=== PATIENT | male | born 1950 | race Caucasian/White ===

== ENCOUNTER 2018-03-26 13:49 | Inpatient (IN) ==
--- NOTE | 2018-03-26 14:04 | Cardiology History & Physical ---
<Shlomo Ryan - Last Filed: 03/26/18 14:05> Date of Encounter: 03/26/18 Time of Encounter: 13:00 Assessment and Plan (1) Abnormal stress test Current Visit: No Status: Acute Patient evaluated in stress lab. Out-pt stress test ordered by PCP for c/o chest pain. Describes typical symptoms concerning for unstable angina. C/o chest pain during stress test with EKG changes with ST depression in the inferior and anteroseptal leads, ST elevation seen in AVR. Stress test perfusion imaging found to be abnormal. There was a large sized, moderate to severe intensity, reversible perfusion defect involving the mid anterior and anteroseptal, all apical segments, and apex consistent with ischemia. There was visual TID. Cardiac risk factors include HTN, tobacco use, and carotid stenosis. Patient was recommended to proceed with LHC. R/B/A of LHC discussed. Patient agrees to proceed. (2) Unstable angina Current Visit: No Status: Acute The assessment and plan as outlined above was discussed with the patient and/or family members who expressed understanding and agreement. All questions were answered. History of Present Illness Chief complaint: Chest pain, abnormal stress HPI: Mr. Saleh is a 67 year old male with past medical history of carotid stenosis, aortic stent, previous tobacco use, and HTN. He was recommended to be directly admitted from the stress lab for unstable angina and abnormal stress test suggesting disease in the LAD territory. He c/o midsternal chest pain with exertion that is relieved with rest. Pain increasing in frequency and severity over the last two months. He completed stress test today and c/o chest pain and dyspnea at peak exercise that extended into recovery. Denies SOB or palpitations. Denies edema, orthopnea, or PND. Denies previous history of CAD. Past Med Surg Social Fam HX - Past Medical History Medical history: arthritis, GERD, hypertension, renal disease Psychiatric history: anxiety - Past Surgical History Surgical History: carotid endarterectomy, cholecystectomy, hip replacement, other - Social History Smoking Status: Never smoker Alcohol use: none Drug use: none Medications and Allergies Allopurinol [Zyloprim] 300 mg PO DAILY 09/30/16 [History] Amlodipine Besylate 10 mg PO DAILY 09/30/16 [History] Clopidogrel [Plavix] 75 mg PO DAILY 09/30/16 [History] Metoprolol [Lopressor] 75 mg PO BID 09/30/16 [History] Sertraline [Zoloft] 50 mg PO DAILY 09/30/16 [History] Simvastatin [Zocor] 10 mg PO DAILY 09/30/16 [History] 3 Allergy/AdvReac Type Severity Reaction Status Date / Time Penicillins [PCN] Allergy Rash Verified 09/30/16 12:10 All Systems Review: The remainder of the systems were reviewed and are negative Physical Examination General: Conversant, No Apparent Distress HEENT: Atraumatic, Normocephaly, Mucus Membranes Moist Neck: No JVD, Normal carotid pulses Cardiac: Reg Rate and Rhythm, Normal S1 and S2, No Murmur Lungs: Normal Breath Sounds, No Wheeze, Rales, Rhonchi Neuro: Alert and responsive, No focal deficits noted Abdomen: Soft, Non-Tender Skin: No rashes noted on visualized skin Musculoskeletal: No Chest Wall Tenderness Extremities: No Clubbing, No Cyanosis, No Edema, Normal Pulses Results - Imaging and Cardiology Stress Test: report reviewed - EKG Interpretation EKG results cardiology: personally reviewed <Vickey Reyes - Last Filed: 03/26/18 15:20> Date of Encounter: 03/26/18 - Attending Attestation I have personally performed a face to face evaluation on this patient. I have reviewed and agree with the care plan. History and Exam by me shows: 67 YOM with chest pain during stress test found to have LAD ischemia on Nuclear , for [facility]. R/B/A d/w patient and he agrees to proceed History of Present Illness HPI: Mr. Saleh is a 67 year old male All Systems Review: The remainder of the systems were reviewed and are negative Results 03/26/18 14:55 Lab Results 03/26/18 03/26/18 14:55 14:55 WBC 7.7 Hgb 13.5 Hct 37.9 Plt Count 205 INR 1.1
[2018-03-26] MEDS ORDERED: Naloxone 0.4 MG/ML INJ IVP PRN (14:15)
[2018-03-26] MEDS ORDERED: ISOVUE-370 200 ML INFUS..BTL IV ONE (14:35)
[2018-03-26] MEDS ORDERED: *HR* Heparin 10,000 UNIT/10 ML VIAL ONE (14:35)
[2018-03-26] MEDS ORDERED: Heparin 1,000 UNITS/500 mL 500 ML ONE (14:35)
[2018-03-26] MEDS ORDERED: 0.9 % Sodium Chloride 1,000 ML ONE ×2 (14:35→14:49)
[2018-03-26 15:08] LABS: Basophils # 0.1 K/mcL (0.0-0.2); Basophils % 0.7 %; Eosinophils # 0.1 K/mcL (0.0-0.6); Eosinophils % 1.3 %; Hematocrit 37.9 % (37.5-50.1); Hemoglobin 13.5 g/dL (12.9-16.9); Immature Granulocytes % 0.9 % (0-4); Lymphocytes # 2.9 K/mcL (0.6-4.6); Lymphocytes % 37.1 %; Mean Corpuscular HGB Conc 35.6 g/dL (31.6-35.5); Mean Corpuscular Hemoglobin 35.7 pg (28.0-33.3); Mean Corpuscular Volume 100.3 fL (83.0-100.0); Mean Platelet Volume 9.3 fL (9.4-12.4); Monocytes # 0.5 K/mcL (0.0-1.3); Monocytes % 6.6 %; Neutrophils # 4.1 K/mcL (1.6-8.9); Platelet Count 205 K/mcL (140-400); Red Blood Count 3.78 M/mcL (4.19-5.50); Red Cell Distribution Width 13.3 % (11.5-14.5); Segmented Neutrophils % 53.4 %
[2018-03-26 15:13] LABS: INR 1.1; Prothrombin Time 11.5 Seconds (9.4-12.1)
[2018-03-26 15:25] LABS: BUN/Creatinine Ratio 15 (6-26); Blood Urea Nitrogen 15 mg/dL (8-23); Calcium 9.3 mg/dL (8.6-10.3); Carbon Dioxide 26 mEq/L (23-29); Chloride 105 mEq/L (98-107); Glucose 111 mg/dL (70-105); Osmolality,Calculated 294 (280-300); Potassium 3.4 mEq/L (3.5-5.1); Sodium 141 mEq/L (136-145); eGFR For African Americans > 60 (> 60); eGFR For Non-African Americans > 60 (> 60)
[2018-03-26] MEDS ORDERED: *HR* Midazolam HCl 2 MG/2 ML VIAL ONE (15:48)
--- NOTE | 2018-03-26 15:50 | Pre-Sedation Evaluation ---
Pre-sedation evaluation - Pre-sedation checklist Date of procedure: 03/26/18 Procedure: LHC H&P (including ROS) documented in medical record: Yes Previous reaction to sedatives/anesthetics: No Dietary Status: No solid food in preceding 4 hrs and no liquid in preceding 2 hrs Dentition: No loose teeth or bridges Possible difficult airway: No ASA Classification *see protocol: CLASS III-Severe systemic disease Plan of Care: Pt appropriate candidate for procedure/moderate/conscious sedation , Risks/benefits of procedure/sedation discussed w/ patient/family, If not NPO; Risk of intake outweiged by necessity to perform procedure
[2018-03-26] MEDS ORDERED: *HR* Bivalirudin 250 MG VIAL IVC ONE (16:13)
[2018-03-26] MEDS ORDERED: Nitroglycerin 1,000 MCG/10 ML VIAL IV ONE (16:20)
[2018-03-26] MEDS ORDERED: *HR* Ticagrelor 90 MG TABLET ONE (16:21)
--- NOTE | 2018-03-26 16:52 | Invasive Diagnostic Lab Proc ---
Name: Adis Saleh Date of Study: 03/26/2018 Date: 1950 Ht: 70.1in Medical Record#: [id number] Age: 67 Wt: 219.80lb Gender: Male BSA: 2.17 Order #: [id number] BMI: 31.47 Physicians Procedure Physician: Serge Rush DO Referring MD: Pranay Branch DO,ALICE ISABEL FASNC Referring MD: Staff Name Position Time In Chris Mccray RN Director Acute 03:49 PM Phyllis Diego RT (R) Scrub 03:50 PM Ad Hidalgo RN Monitor 03:50 PM Abraham Harris RN Monitor 03:50 PM Indications Indication Abnormal Test - Stress Procedures Performed Procedure L HRT ARTERY/VENTRICLE ANGIO PRQ CARD DEIRDRE STENT W/ANGIO 1 VSL Pre-Procedure Checklist Informed consent is complete signed and on chart. H&P is on chart. ID band is on and ID verified with patient. Patient NPO for procedure The procedure was described for the patient and questions were answered. Blood Pressure: 141/98 ECG is on chart. Rhythm: NSR Plan of Care Patient will tolerate the procedure without complications. Adequate level of comfort will be maintained. Hemodynamics will remain stable Patient will recover from procedure without complications. Respiratory function will be maintained. Cardiac rhythm will remain stable. Patient temperature will be maintained. Patient and/or family have verbalized understanding of the procedure. Patient Education Chief Complaint/Reason for Test: Cardiac Cath Developmental Category: Geriatric (65+ years) Developmentally Appropriate for Age: Yes Learning Barriers: None Education Needs: Procedure Education Method: Verbal Information Taught: Cardiac Cath Educational Evaluation: Able to repeat information Intravenous Access Time IV Size Location DC'd Fluid/Drip Rate Units RN 03:28 PM 18g 1 1/4" Patent On Arrival Lt Hand 0.9NaCl Ad Hidalgo RN Allergies Penicillins Vital Signs Time BP (mmHg) HR (bpm) O2 Sat. RR (bpm) LOC 03:10 PM 141 / 98 98 96 % 16 5 = Fully awake and oriented or at pre-proc level 03:52 PM / % 5 = Fully awake and oriented or at pre-proc level 03:52 PM / % 4 = Oriented but drowsy 04:07 PM / % 4 = Oriented but drowsy 03:50 PM 160 / 98 79 98 % 03:54 PM 148 / 90 82 96 % 03:59 PM 154 / 86 75 96 % 04:04 PM 154 / 89 77 96 % 04:09 PM 149 / 79 85 99 % 04:15 PM 163 / 93 77 96 % 04:19 PM 166 / 93 74 98 % 04:25 PM 158 / 88 78 97 % Procedural Medications Time Medication Dose Units Method Given By 03:50 PM Oxygen 2 L/min nasal cannula Chris Mccray RN 03:50 PM Versed 2 mg Intravenous Chris Mccray RN 04:00 PM Lidocaine 2% 10 ml Subcutaneous Serge Rush DO 04:14 PM Brilinta 180 mg Orally Chris Mccray RN 04:15 PM Angiomax 0.75mg/kg bolus: 15 ml Intravenous Chris Mccray RN 04:15 PM Angiomax 1.75mg/kg/hr: 35 ml Intravenous Chris Mccray RN 04:20 PM Nitroglycerin 100 mcg Intracoronary Serge Rush DO ASA Classification: CLASS III- Severe systemic disease (i.e. prior AMI, diabetes with vascular complications, morbid obesity) Jo Score Preprocedure Postprocedure Activity 2- Moves 4 extremities sustained head lift Activity 2- Moves 4 extremities sustained head lift Circulation 2- SBP +/= 20 points of pre-anesthetic level Circulation 2- SBP +/= 20 points of pre-anesthetic level Consciousness 2- Awake and alert oriented x 3 Consciousness 2- Awake and alert oriented x 3 O2 Saturation 2- Able to maintain O2 satruation of 92% on room air O2 Saturation 2- Able to maintain O2 satruation of 92% on room air Respiratory 2- Able to deep breathe and cough well Respiratory 2- Able to deep breathe and cough well Total Score 10 Total Score 10 Contrast Agent: Isovue Diagnostic Contrast: 80 ml Total Contrast: 80 ml Fluoro Dose: 568 mGy Procedure Log Time Note Enter By 03:02 PM CathStat 03:47 PM Pt arrived to dentures lab technician 2 at 15:47 cedwards 03:48 PM Patient charges- Angio tray pack, Navilyst 3mm J, Pulse Oximetry and ACIST tubing and transducer cedwards 03:48 PM IV Supplies used: J loop Angio Cath. cedwards 03:48 PM Hair removed from procedure site in holding area using clippers. Bilateral groin prepped with Chloraprep by Ad Hidalgo RN, then patient was draped. Skin intact. ced 03:48 PM Physician arrived 15:48 cedwards 03:48 PM Meet and marielos completed ced 03:48 PM Sign in performed according to hospital policy. ced 03:48 PM Procedure start 15:48 cedwards 03:49 PM CathStat 03:49 PM Vitals capture started with the following parameters, Patient=Adult, Interval=5 min, Initial Hkazmynk=998 mmHg, Deflation Rate=5 mmHg, Cuff placed on Right Arm 03:49 PM Chris Mccray RN Position: Director Acute Time in: 15:49 cedwards 03:50 PM Phyllis Diego RT (R) Position: Scrub Time in: 15:50 ced 03:50 PM Ad Hidalgo RN Position: Monitor Time in: 15:50 cedwards 03:50 PM Abraham Harris RN Position: Monitor Time in: 15:50 cedwards 03:50 PM HR=79 bpm, ICDT=886/98 mmhg, SpO2=98.0 %, Comment=NSR 03:50 PM Time: 15:50 Oxygen on at 2 L/min per nasal cannula by Chris Mccray RN cedwards 03:50 PM Time: 15:50 Versed 2 mg Intravenous Given by Chris Mccray RN 03:52 PM Time: 15:52 Patient comfortable and pain free: Yes ced 03:52 PM Time: 15:52LOC: 5 = Fully awake and oriented or at pre-proc level cedwards 03:54 PM Recorded ECG: HR=83 Condition=Condition 1 03:54 PM HR=82 bpm, YSSB=524/90 mmhg, SpO2=96.0 % 03:56 PM Pressure channel 2 zeroed. 03:59 PM HR=75 bpm, NSQC=532/86 mmhg, SpO2=96.0 % 04:00 PM Time out performed according to hospital policy cedwards 04:00 PM Time: 16:00 10 ml Lidocaine 2% to right groin Subcutaneous Given by Serge Rush DO ced 04:00 PM Micro-Introducer Kit utilized for sheath placement cedwards 04:01 PM ASA Class CLASS III- Severe systemic disease (i.e. prior AMI, diabetes with vascular complications, morbid obesity) cedwards 04:02 PM Access obtained by percutaneous puncture. 6Fr 10cm Terumo [place] sheath placed in right Femoral artery. [id number] cedwards 04:04 PM 6Fr FR 4 catheter inserted over the wire DN cedwards 04:04 PM HR=77 bpm, HNYV=911/89 mmhg, SpO2=96.0 %, Comment=NSR 04:05 PM Recorded Pressure: Ao, HR=74, Condition=Condition 1 (Aorta) Ao 130/57/87 04:06 PM RCA angiography performed in multiple views. cedwards 04:07 PM Time: 15:52 Patient comfortable and pain free: Yes cedwards 04:07 PM Time: 15:52LOC: 4 = Oriented but drowsy cedwards 04:08 PM Catheter removed cedwards 04:09 PM Recorded Pressure: LV, HR=83, Condition=Condition 1 (Left Ventricle) LV 121/-2/4 04:09 PM 6Fr Pigtail catheter inserted over the wire [facility] cedwards 04:09 PM Recorded Pressure: LV, Ao, HR=74, Condition=Condition 1 (Left Ventricle) LV 105/-9/0, (Aorta) Ao 122/55/84 04:09 PM Bolus angiogram of left Ventricle complete cedwards 04:09 PM HR=85 bpm, LNQH=180/79 mmhg, SpO2=99.0 % 04:10 PM Catheter selectively placed in left ventricle cedwards 04:10 PM Catheter removed cedwards 04:10 PM 6Fr JL4 Runway guide catheter was used to cannulate the PCI vessel successfully. reused? No cedwards 04:10 PM LCA angiography performed in multiple views. cedwards 04:12 PM Recorded Pressure: Ao, HR=79, Condition=Condition 1 (Aorta) Ao 127/57/85 04:13 PM Inflation device was opened. cedwards 04:14 PM Time: 16:14 Brilinta 180 mg Orally Given by Chris Mccray RN cedwards 04:15 PM HR=77 bpm, QXDD=600/93 mmhg, SpO2=96.0 %, Comment=NSR 04:15 PM Time: 16:15 Angiomax 0.75mg/kg bolus: 15 ml Intravenous Given by Chris Mccray RN cedwards 04:16 PM Time: 16:15 Angiomax 1.75mg/kg/hr: 35 ml Intravenous Given by Chris Mccray RN [place] pump cedwards 04:17 PM .014 ChoICE PT Extra Support 300cm guide wire across target lesion- successful. reused? No cedwards 04:17 PM 3.0mm x 32mm Synergy drug-eluting stent across target lesion- successful Lot #[id number] cedwards 04:18 PM Stent deployed @ 10 mony for 17 seconds cedwards 04:19 PM HR=74 bpm, MYFZ=024/93 mmhg, SpO2=98.0 % 04:20 PM Recorded Pressure: Ao, HR=77, Condition=Condition 1 (Aorta) Ao 143/63/97 04:20 PM Recorded Pressure: Ao, HR=74, Condition=Condition 1 (Aorta) Ao 142/61/95 04:20 PM Stent delivery system removed intact. cedwards 04:21 PM Time: 16:20 Nitroglycerin 100 mcg Intracoronary Given by Serge Rush DO cedwards 04:22 PM Coronary Dominance: right cedwards 04:22 PM Guide wire removed intact. cedwards 04:22 PM Guide catheter removed intact. cedwards 04:22 PM Time: 16:07 Patient comfortable and pain free: Yes cedwards 04:22 PM Time: 16:07LOC: 4 = Oriented but drowsy cedwards 04:23 PM Bolus angiogram of right femoral complete, hand injected cedwards 04:25 PM HR=78 bpm, KXQD=552/88 mmhg, SpO2=97.0 % 04:25 PM Angiomax stopped per Dr. Rush cedwards 04:27 PM Procedure completed at 16:27 cedwards 04:27 PM Did you address INNA flow and Dominance? Yes cedwards 04:27 PM Sign out completed: Radiation Dose 567.60 mGy Fluoro Time: 5.0 Isovue 370 - 200ml contrast 80 ml given by Serge Rush DO. Complications: NoneCardiac Rehab Consult needed: YesConfirmed administered medications: Yes cedwards 04:27 PM Isovue 370 - 200ml,1 Bottle(s) used. cedwards 04:28 PM Sheath to be pulled on floor cedwards 04:29 PM Estimated Blood Loss: minimal cedwards 04:29 PM Post ECG NSR cedwards 04:29 PM Post Blood Pressure 158/88 cedwards 04:29 PM 16:29 Post Pulses Bilateral DP & PT 2+ cedwards 04:30 PM Information taught Cardiac Cath and PCI cedwards 04:30 PM Education needs Procedure, Plan of Care, and Responsibilities of Patient in Care cedwards 04:30 PM Learning barriers :None cedwards 04:30 PM Education Methods Verbal cedwards 04:30 PM Education evaluation Able to repeat information cedwards 04:30 PM Site status No bleeding/hematoma - Rt Groin as reported by Ad Hidalgo RN at 16:30 cedwards 04:30 PM Opsite applied cedwards 04:30 PM Plavix, Effient or Brilinta given Yes cedwards 04:31 PM Family unavailable cedwards 04:31 PM Fluoro Time: 5 cedwards 04:31 PM Isovue 370 - 200ml contrast [address] Rush. cedwards 04:31 PM Radiation Dose 567.60 mGy cedwards 04:32 PM Lesion found in Mid RCA. Pre Stenosis: 50 Pre NINA Flow: cedwards 04:32 PM Lesion found in Proximal LAD. Pre Stenosis: 85 Pre NINA Flow: 3: Complete and Brisk Flow/Perfusion cedwards 04:33 PM Lesion found in Mid LAD. Pre Stenosis: 50 Pre NINA Flow: cedwards 04:44 PM Report given to Keon BARNES Pt taken to Room #3. 16:44 cedwards 04:45 PM Patient out of room: 16:45 cedwards Complications Complication None Hemodynamics Pressures Site Systolic/A Wave Diastolic/V Wave Mean AO 130 57 87 LV 121 -2 4 LV 105 -9 0 AO 122 55 84 AO 127 57 85 AO 143 63 97 AO 142 61 95 Post Procedure Information Blood Pressure: 158/88 mmHg Rhythm: NSR Post procedural instructions were given Site Checks Time Location Status Staff Sheath In? Note 04:30 PM Rt Groin No bleeding/hematoma Ad Hidalgo RN Pulses Time Site Pre-Procedure Post-Procedure Note 03/26/2018 3:28:00 PM Bilateral DP & PT 2+ 03/26/2018 3:28:00 PM Bilateral radial 2+ 4:29:00 PM Bilateral DP & PT 2+ Updated by Abraham Harris RN on 03/26/2018 4:46:39 PM electronically signed on 03/26/2018 4:47:31 PM with status of Final
[2018-03-26] MEDS: amLODIPine 5 MG TABLET PO SCH (19:18)
[2018-03-26] MEDS: 0.9 % Sodium Chloride 1,000 ML IVC SCH (19:19)
[2018-03-26] MEDS ORDERED: *HR* Atropine Sulfate 1 MG/10 ML SYRINGE ONE (20:49)
[2018-03-26] MEDS: *HR* Ticagrelor 90 MG TABLET PO SCH (21:48)
[2018-03-27] MEDS: 0.9 % Sodium Chloride 1,000 ML IVC SCH (00:56)
[2018-03-27 04:37] LABS: Chol/HDL Ratio 3.2 (0-4.9)
[2018-03-27] MEDS: *HR* Ticagrelor 90 MG TABLET PO SCH (08:13)
[2018-03-27] MEDS: amLODIPine 5 MG TABLET PO SCH (08:13)
[2018-03-27] MEDS ORDERED: Aspirin 81 MG TAB.CHEW PO SCH (09:00)
[2018-03-27 09:29] LABS: Basophils % 0.5 %; Eosinophils # 0.1 K/mcL (0.0-0.6); Eosinophils % 1.2 %; Hematocrit 35.6 % (37.5-50.1); Hemoglobin 12.8 g/dL (12.9-16.9); Immature Granulocytes % 0.9 % (0-4); Lymphocytes # 1.5 K/mcL (0.6-4.6); Lymphocytes % 26.3 %; Mean Platelet Volume 9.3 fL (9.4-12.4); Monocytes # 0.5 K/mcL (0.0-1.3); Monocytes % 7.8 %; Neutrophils # 3.7 K/mcL (1.6-8.9); Nucleated Red Blood Cells 0.3 /100 WBC (0); Platelet Count 177 K/mcL (140-400); Red Blood Count 3.56 M/mcL (4.19-5.50); Red Cell Distribution Width 13.3 % (11.5-14.5); Segmented Neutrophils % 63.3 %
[2018-03-27 10:18] LABS: BUN/Creatinine Ratio 12 (6-26); Blood Urea Nitrogen 10 mg/dL (8-23); Calcium 8.9 mg/dL (8.6-10.3); Carbon Dioxide 24 mEq/L (23-29); Chloride 106 mEq/L (98-107); Glucose 163 mg/dL (70-105); Osmolality,Calculated 293 (280-300); Potassium 3.6 mEq/L (3.5-5.1); Sodium 140 mEq/L (136-145); eGFR For African Americans > 60 (> 60); eGFR For Non-African Americans > 60 (> 60)
[2018-03-27 10:54] VITALS: BP 149/80
--- NOTE | 2018-03-27 11:28 | Discharge Summary ---
Orders not resulted at time of discharge: Pending orders 03/26/18 14:14 CL Cardiac Catheterization [CL] Routine 03/26/18 16:48 ECG 12 lead ECG [ECG] Stat 03/27/18 07:00 ECG 12 lead ECG [ECG] Routine Date of Encounter: 03/27/18 Time of Encounter: 09:30 - Discharge Diagnosis (1) Abnormal stress test Priority: Primary Status: Acute (2) Unstable angina Priority: Primary Status: Acute - Hospital Course Hospital course: Mr. Saleh is a 67 year old male with past medical history of carotid artery stenosis, HTN, and previous tobacco use who was evaluated in the out-pt stress lab. He developed typical anginal symptoms concerning for unstable angina. C/o chest pain during stress test with EKG changes with ST depression in the inferior and anteroseptal leads, ST elevation seen in AVR. Stress test perfusion imaging found to be abnormal. There was a large sized, moderate to severe intensity, reversible perfusion defect involving the mid anterior and anteroseptal, all apical segments, and apex consistent with ischemia. There was visual TID. He was recommended to be admitted for his symptoms and findings to undergo cardiac catheterization. LHC revealed 80% stenosis in the pLAD and PTCA and DEIRDRE placed with good results. There was a 50% stenosis in the mLAD and 50% stenosis in the mRCA remaining. EF was preserved. There was no complication from the procedure. Denies recurrent chest pain. No complications from right femoral access site. Importance of DAPT with asa and brilinta uninterrupted for minimum of one year discussed and she voiced understanding. Continue statin and BB. Activity restrictions reviewed as stated above. Out-patient f/u will be scheduled. - Time Spent with Patient Total time spent providing and/or coordinating discharge services:1 hr Greater than 30 minutes (d/c summary, med teaching, med rec,) - Discharge Medications Prescriptions: Aspirin 81 mg PO DAILY #30 tab.chew Atorvastatin Calcium [Lipitor] 80 mg PO HS #30 tab Ticagrelor [Brilinta] 90 mg PO BID #60 tablet Home Medications: Allopurinol [Zyloprim] 300 mg PO DAILY 09/30/16 [History] Amlodipine Besylate 10 mg PO DAILY 09/30/16 [History] Metoprolol [Lopressor] 50 mg PO BID 09/30/16 [History] Sertraline [Zoloft] 100 mg PO DAILY 09/30/16 [History] Cholecalciferol (D-3) [Vitamin D] 5,000 unit PO QWEEK 03/26/18 [History] Pantoprazole Sodium [Protonix] 40 mg PO DAILY 03/26/18 [History] diazePAM [Valium] 5 mg PO DAILY PRN 03/26/18 [History] Aspirin 81 mg PO DAILY #30 tab.chew 03/27/18 [Rx] Atorvastatin Calcium [Lipitor] 80 mg PO HS #30 tab 03/27/18 [Rx] Ticagrelor [Brilinta] 90 mg PO BID #60 tablet 03/27/18 [Rx] amLODIPine [Norvasc] 10 mg PO DAILY tablet 03/27/18 [Rx] Allergies/Adverse Reactions: 3 Allergy/AdvReac Type Severity Reaction Status Date / Time Penicillins [PCN] Allergy Rash Verified 03/27/18 06:49 Date of admission: 03/26/18 13:50 Primary care physician: Provider Unassigned Consults: 03/26/18 16:48 Consult to Cardiac Rehabilitation-Phase1 [CONS] Routine Comment: Reason for Consult: AMI Call Completed: Yes Consult to Nurse Navigator [CONS] Routine Comment: Discharging clinician: Shlomo Ryan Anticipated date of discharge: 03/27/18 Physical Examination Vital Signs, Last 4 Hours Temp Pulse Resp BP Pulse Ox 03/27/18 10:52 98.2 F 64 19 149/80 94 03/27/18 08:15 60 03/27/18 08:10 98.2 F 65 16 138/98 94 General: Conversant, No Apparent Distress HEENT: Atraumatic, Normocephaly, Mucus Membranes Moist Neck: No JVD, Normal carotid pulses Cardiac: Reg Rate and Rhythm, Normal S1 and S2, No Murmur Lungs: Normal Breath Sounds, No Wheeze, Rales, Rhonchi Neuro: Alert and responsive, No focal deficits noted Abdomen: Soft, Non-Tender Skin: No rashes noted on visualized skin Musculoskeletal: No Chest Wall Tenderness Extremities: No Clubbing, No Cyanosis, No Edema, Normal Pulses, Other (Quarter size ecchymosis around right groin access site. ) - Patient Status Disposition: Home, Self-Care Condition: Good Functional capacity at discharge: independent ambulation Overall status at discharge: patient is progressing back to baseline - Discharge Instructions Instructions: Chest Pain (DC) Follow Up With: Elinor Cardona [Other] - 04/03/18 11:00 am (The new office is located across from [facility]) Serge Rush DO [Partnered Physician] - (Office will call patient at home with follow up appointment) Additional Instructions: RISK FACTORS: STOP SMOKING: If you smoke, STOP. Smoking or tobacco use significantly increases your risk of heart disease because nicotine causes the arteries to narrow or constrict. It also causes fats to stick to the artery. Your chances of having a heart attack are greatly increased if you continue to smoke. For more information, call the education line for smoking cessation 1-734-CMBPEMK EAT A LOW FAT/CHOLESTEROL/SODIUM DIET: This diet may help reduce your chances of having a heart attack. LIFTING: Avoid lifting anything more than 10 pounds for 5-7 days Prior to straining, laughing, sneezing and/or coughing, apply manual pressure directly over insertion site. ACTIVITY: You may walk or climb stairs as tolerated You can resume sexual activity as tolerated In general, you are encouraged to engage in a minimum of 30 minutes or more of moderate intensity physical activity, such as brisk walking, daily or at least 3 -4 times weekly BATHING Do not submerge the site into water (bath tub, hot tub, swimming pool) for 1 week. This can be a source for infection into the blood stream. You may shower after 24 hours SITE CARE: After 24 hours, you may remove the dressing and leave the site open to air. Keep the site clean and dry. Clean gently and pat dry. You can expect bruising and tenderness that gradually resolve within a week or two. Return to work as instructed per your physician Resume driving as instructed per physician Keep all scheduled follow up appointments Resume medications as instructed IMPORTANT: If prescribed a Platelet Aggregation Inhibitor such as, Plavix, Brilinta or Effient: Duration of therapy is minimum one year These medications are often used in combination with Aspirin in prevention of future heart attacks Never discontinue unless consult with your Shredder Tender Peat STROKE (CVA) Risk factors for a stroke are: Age, cigarette smoking, diabetes, excessive alcohol consumption, family history, high blood pressure, overweight, physical inactivity, prior stroke, heart attack, diagnosis of carotid artery stenosis or other artery disease. Warning signs: Sudden numbness or weakness of the face, arm or leg; especially on one side of the body, sudden confusion, trouble speaking or understanding, sudden trouble seeing in one or both eyes, sudden trouble walking, dizziness, loss of balance or coordination, sudden severe headache with no cause. Call 911 or go to the Emergency Room. CONGESTIVE HEART FAILURE: If you have been diagnosed with Congestive Heart Failure (CHF) and your symptoms return, make an appointment with your physician Weigh yourself daily. Notify your physician if you have a weight gain of two or more pounds in one day or five or more pounds in one week. If you experience any difficulty breathing, please call 911 BLEEDING: Although the risk of bleeding is minimal, it can happen. If you have any bleeding from the site, apply firm pressure above the puncture site for 10-15 minutes. If the bleeding does not stop, continue manual pressure and call 911 Contact your physician if: You develop a fever greater than 101 degrees Fahrenheit Your site becomes reddened or has any drainage You have an increase in pain or burning at the site or if a large knot forms at the site. If you experience chest pain, shortness of breath, dizziness, or extreme tiredness, stop the activity and rest. Please notify your physicians office if you experience any of these symptoms and they are not relieved by rest please call 911! - Diet and Activity Activity: increase activity as tolerated - VTE Documentation of Mechanical Device: Intermittent pneumatic compression device
== END 2018-03-27 13:06 | disposition home or self-care (01) | DRG 247 ==
LOC: 3BNU 13:50 → 2NNU 16:51
PROVIDERS: ADMIT Internal Medicine; ATTEND Internal Medicine